=== PATIENT | male | born 1935 | race Caucasian/White ===

== ENCOUNTER 2018-03-08 19:47 | Emergency (ER) | payer MEDICARE, SELFPAY ==
[2018-03-08 19:58] VITALS: BP 173/92; PULSE 138; RESP 30; TEMP 38.2; O2SAT 92
--- NOTE | 2018-03-08 20:07 | DI.RAD_ITS ---
SYMPTOMS/DIAGNOSIS: FEVER AP AND LATERAL CHEST: Comparison is made with [id number]. The heart is enlarged. A coronary artery stent is seen. There is minimal blunting at the right costophrenic angle. There may be mildly increased interstitial markings which could indicate mild pulmonary edema. No focal infiltrate is seen. IMPRESSION: Cardiomegaly and question of mild CHF. No focal pneumonia is identified.
[2018-03-08] MEDS: Normal Saline 1,000 ML 1000 ML IV ×2 (20:14→20:59)
--- NOTE | 2018-03-08 20:16 | ED.GENADUL_ITS ---
Discharge Plan Disposition Patient Disposition: HOME Condition: Stable Discharge Details Chief Complaint: RespSymp Clinical Impression: Influenza, Dehydration Reason For Visit: ROSE Primary Care Provider: Aaliyah Ramirez ED Provider: Jama York Home Meds and New Rx's Prescriptions: New oseltamivir 30 mg capsule 30 mg PO BID 5 Days Qty: 10 RF: 0 No Action iron 325 MG capsule, extended release 325 mg PO PRN RF: 0 terazosin 5 MG capsule 5 mg PO DAILY Qty: 90 RF: 4 atorvastatin [Lipitor] 80 MG tablet 80 mg PO DAILY Qty: 90 RF: 4 methotrexate sodium 2.5 MG tablet 5 tab PO WEEKLY Qty: 60 RF: 3 levothyroxine 125 MCG tablet 125 mcg PO DAILY Qty: 90 RF: 4 nitroglycerin [Nitrostat] 0.4 MG tablet, sublingual 0.4 mg Sublingual PRN Qty: 25 RF: 4 aspirin [Aspir-Low] 81 MG tablet,delayed release (DR/EC) 81 mg PO DAILY RF: 0 Discharge Instructions Instructions: Influenza (ED) Additional Instructions: you tested positive for the flu make sure you drink fluids to stay hydrated if you have severe worsening symptoms or difficulty breathing return to the emergency department for reevaluation Medical Decision Making 82 yo male with hx of afib and eliquis but not on shaila blockers for a few months, hld, htn, who comes in with chief complaint of general weakness and cough for a few days. He is noted to have a fever here and he is not sure how long he has been febrile for. He denies chest pain, abd pain, rashes, recent t ravel, headache, neck stiffness. Has decreased breath sounds at the bases bilaterally on exam.. I suspect influenza vs pna given fever and the cough, will obtain lab work and chest xray to eval for pna. He is in afib with rates of 130's but appears volume depleted, will give IVF and reassess pt's labs show no acute abnormalities, is flu positive however. Xray negative. HR now in the 100's and o2 sat 95% on room air. Pt and are comfortable with d/c and will f/u with pcp and return precautions given. Per Pharmacy given his renal function they recommend 30mg BID tamiflu Differential Diagnosis influenza, pneumonia, uri Imaging Data Radiologic Study: Attestation: I personally reviewed and interpreted this imaging study as follows: Imaging: X-Ray Radiologist's impression: no acute findings Lab Data Lab results reviewed: Yes I reviewed the patient's lab results. ECG Data Attestation: I personally reviewed and interpreted this ECG (s) as follows: Prior ECG tracings: not available for review Interpretation: afib, rates in the 130's, qtc 412, artifact limiting interpretation HPI General Mode of arrival: EMS . Date/Time Provider Initiated Documentation: 03/08/18 19:55 . Limitations to Documentation: no limitations . Information obtained by: patient . History of Present Illness 82 year old M presents to the emergency department with the chief complaint of weakness, described as moderate, Patient started experiencing this day(s) (2) and it has been constant. No relieving factors improve symptom(s), Patient notes cough. Patient did receive the following treatments prior to arrival, none Related Data Home Medications Medication Instructions Recorded Confirmed ferrous sulfate [Iron] 325 mg PO PRN tab 08/01/12 03/08/18 atorvastatin [Lipitor] 80 mg PO DAILY #90 tab-cap 08/06/14 03/08/18 levothyroxine 125 mcg PO DAILY #90 tab-cap 08/06/14 03/08/18 methotrexate sodium 5 tab PO WEEKLY #60 tab 08/06/14 03/08/18 nitroglycerin [Nitrostat] 0.4 mg SUBLINGUAL PRN #25 tab 08/06/14 03/08/18 terazosin 5 mg PO DAILY #90 tab-cap 08/06/14 03/08/18 aspirin [Aspir-Low] 81 mg PO DAILY 02/19/15 03/08/18 oseltamivir 30 mg PO BID 5 Days #10 cap 03/08/18 Previous Rx's Medication Instructions Recorded oseltamivir 30 mg PO BID 5 Days #10 cap 03/08/18 Allergies Allergy/AdvReac Type Severity Reaction Status Date / Time No Known Allergies Allergy Unverified 03/08/18 20:01 General Stated Complaint: RespSymp TIGRE: 3 Review of Systems Review of Systems All systems reviewed & are unremarkable except as noted in HPI and below Constitutional Denies chills ENT Denies change in voice Cardiovascular Denies chest pain and Denies dyspnea Respiratory Denies dyspnea Gastrointestinal Denies abdominal pain, Denies nausea and Denies vomiting Genitourinary Denies dysuria Musculoskeletal Denies joint swelling Integumentary/Breasts Denies rash Psychiatric Denies depression Endocrine Denies cold intolerance and Denies heat intolerance PFSH Surgical History Extraction of cataract Stent placement Family History Mother Essential hypertension Personal history of malignant neoplasm Father No problems noted. Brother No problems noted. Social History Smoking/Tobacco Use Status: Former Tobacco Use Exam Const General: no acute distress Orientation: alert HENMT Head: normal to inspection Ears: external ears normal General nose exam: external nose normal Mouth: moist mucous membranes Eyes General: appearance normal, both eyes and all related structures Neck Neck: normal visual inspection Resp Effort & Inspection: normal respiratory effort and able to speak in complete sentences Cardio Rate: regular rate Skin General skin exam: no rashes or lesions noted Neuro General: alert and oriented x3 Extrem General: normal to inspection Psych Mental Status: mental status grossly normal Course Vital Signs Temperature 38.2 C H 03/08/18 19:58 Pulse 138 H 03/08/18 19:58 Respiratory Rate 30 H 03/08/18 19:58 Blood Pressure 173/92 H 03/08/18 19:58 Pulse Oximetry 92 L 03/08/18 19:58 Temperature 38.2 C H 03/08/18 19:58 Temperature Source Temporal Artery Scan 03/08/18 19:58 Pulse 138 H 03/08/18 19:58 Respiratory Rate 30 H 03/08/18 19:58 Respiratory Depth Normal 03/08/18 20:04 Blood Pressure 173/92 H 03/08/18 19:58 Blood Pressure Position Sitting 03/08/18 19:58 Pulse Oximetry 92 L 03/08/18 19:58 Oxygen Delivery Method Room Air 03/08/18 19:58 Oxygen Flow Rate 0 03/08/18 19:58 Pain Level 0 03/08/18 19:58 Lab/Test Results Lab/Test Results: 03/08/18 20:13 Nasopharynx Influenza Types A,B Antigen - Pending 03/08/18 20:07 Blood Blood Culture - Pending 03/08/18 20:07 Blood Blood Culture - Pending
[2018-03-08 20:18] LABS: Abs Immature Grans 0.01 k/cumm (0.0-0.09); Absolute Basophil Count 0.01 k/cumm (0.0-0.2); Absolute Eosinophil Count 0.01 k/cumm (0.0-0.7); Absolute Lymphocyte Count 0.29 k/cumm (1.2-3.4); Basophils % 0.2; Eosinophils % 0.2; HCT 38.4 % (40.0-50.0); HGB 13.3 g/dL (13.5-17.5); Immature Grans % 0.2; Lymphocytes % 6.9; Mean Corp. HGB Concentration 34.6 g/dL (32.0-36.0); Mean Corpuscular Hemoglobin 32.7 pg (27.0-33.0); Mean Corpuscular Volume 94.3 fL (80-95); Mean Platelet Volume 9.6 fL (8.0-11.0); Monocytes % 4.7; Neutrophils % 87.8; RBC 4.07 m/cumm (4.50-6.00); RBC Distribution Width 15.6 % (11.8-14.1); White Blood Cell Count 4.22 k/cumm (4.4-10.8)
[2018-03-08 20:20] LABS: Lactate-non-spesis 1.2 mmol/L (0.6-1.4)
[2018-03-08 20:32] LABS: Absolute Neutrophil Count 3.71 k/cumm (1.2-6.7)
[2018-03-08 20:36] LABS: ALT 30 U/L (12-78); AST 41 U/L (15-37); Albumin 3.3 g/dL (3.4-5.0); Alkaline Phosphatase 76 U/L (46-116); Anion Gap 9.6 mmol/L (3-11); BUN 20 mg/dL (7-18); CO2 25.4 mmol/L (21.0-32.0); CREATININE 1.53 mg/dL (0.70-1.30); Calcium 7.9 mg/dL (8.5-10.1); Chloride 102 mmol/L (98-107); Glucose 125 mg/dL (70-100); Potassium 4.2 mmol/L (3.5-5.1); Sodium 137 mmol/L (136-145); Total Protein 6.7 g/dL (6.4-8.2)
[2018-03-08 20:52] LABS: Platelet Count 94 x1000/uL (130-400)
[2018-03-08 20:55] VITALS: BP 126/76; PULSE 121; RESP 17; TEMP 38.5; O2SAT 91
[2018-03-08 20:56] LABS: INR 1.3 (0.9-1.1); PTT Activated 27.6 sec (21.0-31.4); Prothrombin Time 12.6 sec (9.3-11.0)
[2018-03-08] MEDS: Acetaminophen 500 MG TAB 1000 MG PO (20:56)
--- NOTE | 2018-03-08 20:56 | NUR.NOTE ---
patient returned from DI, medicated per MD order Nursing Note:
--- NOTE | 2018-03-08 21:14 | DI.VRAD_ITS ---
EXAM: XR Chest, 2 Views EXAM DATE/TIME: 03/08/2018 8:09 PM CLINICAL HISTORY: 82 years old, male; Signs and symptoms; Fever TECHNIQUE: XR of the chest, 2 views. COMPARISON: CR PORTABLE CHEST ONE VIEW 12/05/2014 8:35 AM FINDINGS: No airspace consolidation, pleural effusion or pneumothorax. The cardiomediastinal silhouette is unremarkable. IMPRESSION: No acute findings. Dictated and Authenticated by: Anton Marsh MD. Ordering:TED Yun MD
[2018-03-08] MEDS: Oseltamivir 75 MG CAP PO (21:15)
[2018-03-08 21:52] VITALS: BP 135/95; PULSE 111; RESP 31; TEMP 37.9; O2SAT 90
== END 2018-03-08 21:45 | disposition home or self-care (01) ==
LOC: ER 21:45
PROVIDERS: Emergency Provider Emergency Medicine; PCP Nurse Practitioner
DX: J11.1 Influenza due to unidentified influenza virus with other respiratory manifestations (principal); R05 Cough; E86.0 Dehydration; I48.91 Unspecified atrial fibrillation; Z79.01 Long term (current) use of anticoagulants; J44.9 Chronic obstructive pulmonary disease, unspecified; Z87.891 Personal history of nicotine dependence; I10 Essential (primary) hypertension
CPT/HCPCS: 36415; 80053; 87040; 87449; 93005; 96360; 99285; 71046; 83605; 85025; 85610; 85730; 93010

== ENCOUNTER 2018-08-07 15:56 | Outpatient (REF) | payer MEDICARE, SELFPAY ==
[2018-08-07 19:43] LABS: HCT 40.2 % (40.0-50.0); HGB 13.5 g/dL (13.5-17.5); Mean Corp. HGB Concentration 33.6 g/dL (32.0-36.0); Mean Corpuscular Hemoglobin 30.8 pg (27.0-33.0); Mean Corpuscular Volume 91.6 fL (80-95); Mean Platelet Volume 10.6 fL (8.0-11.0); Platelet Count 113 x1000/uL (130-400); RBC 4.39 m/cumm (4.50-6.00); RBC Distribution Width 15.2 % (11.8-14.1); White Blood Cell Count 3.46 k/cumm (4.4-10.8)
[2018-08-07 20:05] LABS: ALT 31 U/L (12-78); AST 28 U/L (15-37); Albumin 3.3 g/dL (3.4-5.0); Alkaline Phosphatase 93 U/L (46-116); Anion Gap 8.2 mmol/L (3-11); BUN 24 mg/dL (7-18); Bilirubin, Total 0.5 mg/dL (0.2-1.0); CO2 27.8 mmol/L (21.0-32.0); Calculated LDL 99; Chloride 108 mmol/L (98-107); Cholesterol 159 mg/dL (50-200); Estimated GFR 52.85 (mL/min/1.73m2); Glucose 131 mg/dL (70-100); HDL Cholesterol 52 mg/dL (40-60); Sodium 144 mmol/L (136-145); TSH (W/Ref FT4) 0.29 uIU/mL (0.358-3.74); Total Protein 6.5 g/dL (6.4-8.2); Triglyceride 43 mg/dL (30-150)
[2018-08-07 20:25] LABS: Calcium 8.4 mg/dL (8.5-10.1)
[2018-08-07 20:47] LABS: FREE T4 1.61 ng/dL (0.76-1.46)
== END 2018-08-07 16:16 ==
LOC: NCHCN 15:56
PROVIDERS: PCP Nurse Practitioner; Visit Provider Nurse Practitioner
DX: E78.5 Hyperlipidemia, unspecified (principal); R73.01 Impaired fasting glucose; E03.9 Hypothyroidism, unspecified; D64.9 Anemia, unspecified
CPT/HCPCS: 80053; 80061; 83721; 85027; 84439; 84443

== ENCOUNTER 2018-12-16 06:53 | Emergency (ER) | payer MEDICARE, SELFPAY ==
[2018-12-16] VITALS (19 sets, daily range): BP systolic 124–173; BP diastolic 79–128; PULSE 60–91; RESP 15–27; TEMP 36.4; O2SAT 95–99
--- NOTE | 2018-12-16 06:54 | ED.GENADUL_ITS ---
Discharge Plan Disposition Patient Disposition: [facility] Condition: Stable Discharge Details Chief Complaint: CVA/TIA Clinical Impression: CVA (cerebral vascular accident) Primary Care Provider: Aaliyah Ramirez ED Provider: Eduard Reyes Home Meds and New Rx's Prescriptions: No Action terazosin 5 MG capsule 5 mg PO DAILY Qty: 90 RF: 4 methotrexate sodium 2.5 MG tablet 4 tab PO WEEKLY Qty: 60 RF: 3 levothyroxine 125 MCG tablet 125 mcg PO DAILY Qty: 90 RF: 4 nitroglycerin [Nitrostat] 0.4 MG tablet, sublingual 0.4 mg Sublingual PRN Qty: 25 RF: 4 aspirin [Aspir-Low] 81 MG tablet,delayed release (DR/EC) 81 mg PO DAILY RF: 0 atorvastatin 20 mg Tablet 20 mg PO QPM RF: 0 folic acid 1 mg Tablet 1 mg PO DAILY RF: 0 Medical Decision Making Upon my evaluation, this patient had a high probability of imminent or life- threatening deterioration, which required my direct attention, intervention, and personal management. I have personally provided 45 minutes of critical care time exclusive of time spent on separately billable procedures. Time includes review of laboratory data, radiology results, discussion with consultants, and monitoring for potential decompensation. Interventions were performed as documented above. 7 AM This is an 83-year-old male with a past medical history of previous stroke in 2015 who did receive TPA at that time, A. fib, he was previously on Eliquis but is now on just aspirin. Presents today for evaluation of strokelike symptoms. 45 minutes prior to arrival patient developed left sided weakness for his upper and lower extremity. He does have chronic slurred speech from his previous stroke, however this weakness is new. He denies any significant trauma. EMS brought the patient to the ER for further assessment. Vital signs stable, Accu-Chek normal. The patient's is currently at bedside now. On arrival patient was immediately assessed in the flores, notable strokelike symptoms with an NIH stroke score of at least 14. Patient was sent immediately to CT for further assessment. We will reassess when the patient returns. 7:22 AM Personal review of CT scan shows no evidence of acute bleed, we are awaiting for virtual radiology read. Upon patient's return his NIH stroke scale appears to actually be around 15, he does have some chronic dysarthria, however his weakness, facial droop, decreased sensation is new. No clinical evidence of trauma. We are awaiting portable chest x-ray. I had a long discussion with the patient and his was at bedside, we discussed risks and benefits of TPA,. At this time understanding the risks and benefits the patient states that he would like the medication. Was very clear that due to the patient's age there is a significant increase chance of life-threatening bleeding, the patient and family understand. Pending formal read from radiology. We have paged [facility] neurology for stat consult, as well as potential transfer. 7:45 AM The case was discussed with Dr. Gil of neurology, all labs were reviewed, she personally reviewed the CT scan, including CT angios and sees no evidence of acute bleed, additionally V rad read shows no evidence of acute bleed. She does recommend TPA administration. TPA will be given here per protocol. we will administer TPA. Patient does demonstrate an equivocal troponin of 0.08, calcium is low at 7.8 which I feel is likely secondary to his hypoalbuminemia. [facility] has agreed to transfer the patient by air. I have extensively reviewed the treatment plan with the patient. I have addressed all patient concerns at this time. I have also discussed the plan with the admitting physician and they agree with the current assessment and plan and have agreed to assume responsibility for the patient. All parties demonstrate verbal understanding and agreement with our assessment and plan at this time. Case will be signed out to my colleague Dr. York for final disposition with [facility]. EKG 7: 19 Rate 78, TC 458, QRS 90, atrial fibrillation, no significant ST elevations or depression, no evidence of STEMI. Relatively unchanged from prior EKG on 03/08/2018 FINDINGS: Study is limited by degree vascular opacification, some motion as well as vascular calcification. Intracranial vascular structures are patent without major branch vessel occlusion. No evidence of definite high-grade stenosis. 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 There is a left frontal lobe infarct. Cerebral venous structures appear patent. IMPRESSION: Limited examination. No evidence of major vascular intracranial occlusion or high-grade stenosis. FINDINGS: Aortic arch and cervical vessels shows calcification and atherosclerotic change. No visible aortic aneurysm. Study is limited by degree of vascular calcification. Common, internal, external carotid arteries are patent bilaterally. There is calcification at carotid bifurcations. There is is no evidence of significant degree of stenosis of left internal carotid artery. Calcification limits evaluation of proximal right internal carotid artery but there may be a proximal moderate proximal narrowing. No occlusion. Bilateral vertebral arteries are patent the visualized without high-grade stenosis and no evidence of occlusion. Degenerative changes are noted in the spine. IMPRESSION: Limited examination. Atherosclerotic change. No vascular lesion or high-grade cervical vascular stenosis. COMMENT: Reference per NASCET criteria for degree of stenosis: Mild: less than 50% stenosis. Moderate: 50- 69% stenosis. Severe: 70-94% stenosis. Near occlusion: 95-99% stenosis. Thank you for allowing us to participate in the care of your patient. Dictated and Authenticated by: Maribel Lucia MD [facility] General Date/Time Provider Initiated Documentation: 12/16/18 07:17 . HPI Narrative: This is an 83-year-old male with a past medical history of A. fib, thyroid disorder, previous stroke in 2015 who received TPA at that time, who presents today for evaluation of stroke. 45 minutes prior to arrival the patient was walking down the stairs, at that time he had no significant complaints or abnormalities however once he got to the bottom he became notably weak on the left hand side, and developed slurred speech, left arm and leg weakness, called for his immediately. EMS arrived and sugar levels are normal, vital signs are stable, concern for significant strokelike symptoms. Patient was transported to the ED for further assessment. Currently the patient is alone without family. No medication list has been brought by EMS. We are waiting for family to arrive. The patient has no complaints of chest pain or shortness of breath. He does admit to left-sided weakness, difficulty speaking, and facial droop. No other modifying factors. Review of patient's records from his PCPs office demonstrate that he does take aspirin but no Eliquis. Review of prior records in our ED seem to indicate that he was previously on Eliquis. Related Data Home Medications Medication Instructions Recorded Confirmed levothyroxine 125 mcg PO DAILY #90 tab-cap 08/06/14 12/16/18 methotrexate sodium 4 tab PO WEEKLY #60 tab 08/06/14 12/16/18 nitroglycerin [Nitrostat] 0.4 mg SUBLINGUAL PRN #25 tab 08/06/14 12/16/18 terazosin 5 mg PO DAILY #90 tab-cap 08/06/14 12/16/18 aspirin [Aspir-Low] 81 mg PO DAILY 02/19/15 12/16/18 atorvastatin 20 mg PO QPM 12/16/18 12/16/18 folic acid 1 mg PO DAILY 12/16/18 12/16/18 Allergies Allergy/AdvReac Type Severity Reaction Status Date / Time rivaroxaban [From Xarelto] Allergy Unverified 12/16/18 07:05 General TIGRE: 3 Review of Systems Review of Systems ROS Unobtainable: All systems reviewed & are unremarkable except as noted in HPI and below PFSH Surgical History (Updated 12/14/17 @ 14:34 by [employer]) Extraction of cataract 02/25/15 DR. JOHN-RIGHT; 03/11/15 DR. JOHN-LEFT Stent placement Family History Mother Essential hypertension Personal history of malignant neoplasm STOMACH Father No problems noted. Brother No problems noted. Social History Smoking/Tobacco Use Status: Former Tobacco Use Drug use: Never Do you feel safe in your relationship?: Yes Exam Narrative Exam Narrative: 1.Const: Elderly appearing 2.Eyes: PERRL, 3 mm bilaterally. No conjunctival injection, and symmetrical lids. No forced gaze. 3.ENT: Atraumatic external nose and ears. Moist MM. Neck: Symmetric, trachea midline, No thyromegaly. Notable left-sided facial droop 4.CVS: +S1/S2, No murmurs or gallops. Peripheral pulses 2+ and equal in all extremities. Brisk capillary refill in all extremities. 5.RESP: Unlabored respiratory effort. Clear to auscultation bilaterally. No wheezes rales or rhonchi 6.GI: Soft, Nontender/Nondistended, No hepatosplenomegaly. No guarding or rebound. 7.MSK: Normocephalic/Atraumatic, Extremities w/o deformity or ttp No cyanosis or clubbing, notable weakness for the left upper and lower extremities. No evidence of midline cervical thoracic or lumbar spine tenderness. No evidence of significant cranial trauma. 8.Skin: Warm, Dry. Mild evidence of bruise of the left lateral ribs between ribs 6,7,8,9 9.Neuro: Notable left-sided facial droop with forehead sparing. Significantly slurred speech, inability to perform handgrip or movement of the left upper extremity. He cannot which is slightly. Left lower extremity demonstrates notable decrease in strength, strength is roughly 2 out of 5. Right lower and upper extremity demonstrate normal movement, functionality, and strength. Decreased sensation on the left upper extremity over the forearm and hand, intact sensation over the proximal arm on the left, in the left lower extremity. Decreased sensation on the left face. Notable difficulty eliciting evaluation of the patient's vision, patient appears to be intact, however focal jung of vision appears to be reduced, versus notably difficult to evaluate with the patient's current stroke status. 10.Psych: Appropriate mood and affect Sign Out Sign Out Data: Sign Out Comment: Strokelike symptoms, NIH score 15, pending CT result for administration of TPA. Last updated by Eduard Reyes DO at 12/16/18 07:29
[2018-12-16] MEDS: Omnipaque 350 MG/ML 100 ML BTL IJ (07:03)
--- NOTE | 2018-12-16 07:14 | DI.CT_ITS ---
EXAM: CT BRAIN NECK CTA CLINICAL HISTORY: stroke protocol TECHNIQUE: Noncontrast cranial CT was performed followed by contrast enhanced CT angiogram, neck and head. 85 cc of Omnipaque [address] angiography was performed with multi slice a cquisition and multi planar and 3D reconstruction. COMPARISON: HEAD WITHOUT STROKE PROTOCOL from 12/05/2014 FINDINGS: The noncontrast study shows moderate generalized cerebral atrophy and patchy areas of decreased atten uation in the periventricular white matter bilaterally consistent with microvascular ischemic changes . Increased prominence of old left frontal infarct noted suggesting progressive infarction in this a mimilizzie. Increased prominence of areas of decreased attenuation and right occipital lobe also noted which may represent small interval infarctions. No evidence of acute intracranial hemorrhage. No mass effect or midline shift. No acute calvarial fr acture. Orbital and temporal bone structures appear intact as visualized. CT angiography evaluation was severely limited by motion artifact and suboptimal opacification of vas cular structures associated with catheter leakage. Lung apices grossly clear. Tracheolaryngeal stru ctures grossly intact. No cervical mass or adenopathy. Contrast is visible in the aortic arch, comm on and internal carotid arteries bilaterally, and middle anterior and posterior cerebral arteries as well as the vertebral and basilar arteries. However stenosis cannot be excluded due to the very poor contrast opacification. IMPRESSION: Very limited study. If there is a high clinical suspicion of vascular stenosis, dissection or aneurys m,,repeat CTA would be recommended.
--- NOTE | 2018-12-16 07:18 | DI.RAD_ITS ---
EXAM: XR PORTABLE CHEST AP CLINICAL HISTORY: stroke TECHNIQUE: COMPARISON: XR CHEST 2V PA LATERAL from 03/08/2018 FINDINGS: Two views were obtained, labeled 0725 and 0730 hours. Heart is enlarged. Lungs are clear. No gross pleural effusion identified on these frontal films. IMPRESSION: No evidence of acute process.
[2018-12-16 07:24] LABS: BE (Venous) -0.2 mmol/L (-3-3); HCO3 (Venous) 25 mmol/L (22-28); O2 Sat (Venous) 82 % (70-80); TCO2 (Venous) 23 mmol/L (22-29); pCO2 (Venous) 46 mm/Hg (34-47); pH (Venous) 7.35 (7.32-7.43); pO2 (Venous) 47 mm/Hg (28-44)
[2018-12-16 07:29] LABS: Abs Immature Grans 0.01 k/cumm (0.0-0.09); Absolute Basophil Count 0.02 k/cumm (0.0-0.2); Absolute Eosinophil Count 0.16 k/cumm (0.0-0.7); Absolute Lymphocyte Count 1.07 k/cumm (1.2-3.4); Absolute Monocyte Count 0.19 k/cumm (0.11-0.7); Absolute Neutrophil Count 2.57 k/cumm (1.2-6.7); Basophils % 0.5; HCT 38.4 % (40.0-50.0); HGB 13.2 g/dL (13.5-17.5); Immature Grans % 0.2; Lymphocytes % 26.6; Mean Corp. HGB Concentration 34.4 g/dL (32.0-36.0); Mean Corpuscular Hemoglobin 31.4 pg (27.0-33.0); Mean Corpuscular Volume 91.2 fL (80-95); Mean Platelet Volume 9.4 fL (8.0-11.0); Monocytes % 4.7; Platelet Count 145 x1000/uL (130-400); RBC 4.21 m/cumm (4.50-6.00); RBC Distribution Width 14.1 % (11.8-14.1); White Blood Cell Count 4.02 k/cumm (4.4-10.8)
[2018-12-16 07:37] LABS: INR 1.2 (0.9-1.1); PTT Activated 22.3 sec (21.0-31.4); Prothrombin Time 12.1 sec (9.3-11.0)
--- NOTE | 2018-12-16 07:47 | DI.VRAD_ITS ---
PROCEDURE INFORMATION: Exam: CT Angiography Head Without And With Contrast Exam date and time: 12/16/2018 7:00 AM Clinical history: 83 years old, male; Fell in home TECHNIQUE: Imaging protocol: Computed tomographic angiography of the head without and with intravenous contrast. 3D rendering: MIP reconstructed images were created and reviewed. Radiation optimization: All CT scans at this facility use at least one of these dose optimization techniques: automated exposure control; mA and/or kV adjustment per patient size (includes targeted exams where dose is matched to clinical indication); or iterative reconstruction. Contrast material: [id number]; Contrast volume: 85 ml; Contrast route: IV LAC 18G; COMPARISON: CT HEAD WITHOUT STROKE PROTOCOL 12/05/2014 7:55 AM FINDINGS: Study is limited by degree vascular opacification, some motion as well as vascular calcification. Intracranial vascular structures are patent without major branch vessel occlusion. No evidence of definite high-grade stenosis. 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 There is a left frontal lobe infarct. Cerebral venous structures appear patent. IMPRESSION: Limited examination. No evidence of major vascular intracranial occlusion or high-grade stenosis. PROCEDURE INFORMATION: Exam: CT Angiography Neck Without And With Contrast Exam date and time: 12/16/2018 7:00 AM Clinical history: 83 years old, male; Fell in home TECHNIQUE: Imaging protocol: Computed tomographic angiography of the neck without and with intravenous contrast. 3D rendering: MIP reconstructed images were created and reviewed. Radiation optimization: All CT scans at this facility use at least one of these dose optimization techniques: automated exposure control; mA and/or kV adjustment per patient size (includes targeted exams where dose is matched to clinical indication); or iterative reconstruction. COMPARISON: CT HEAD WITHOUT STROKE PROTOCOL 12/05/2014 7:55 AM FINDINGS: Aortic arch and cervical vessels shows calcification and atherosclerotic change. No visible aortic aneurysm. Study is limited by degree of vascular calcification. Common, internal, external carotid arteries are patent bilaterally. There is calcification at carotid bifurcations. There is is no evidence of significant degree of stenosis of left internal carotid artery. Calcification limits evaluation of proximal right internal carotid artery but there may be a proximal moderate proximal narrowing. No occlusion. Bilateral vertebral arteries are patent the visualized without high-grade stenosis and no evidence of occlusion. Degenerative changes are noted in the spine. IMPRESSION: Limited examination. Atherosclerotic change. No vascular lesion or high-grade cervical vascular stenosis. COMMENT: Reference per NASCET criteria for degree of stenosis: Mild: less than 50% stenosis. Moderate: 50-69% stenosis. Severe: 70-94% stenosis. Near occlusion: 95-99% stenosis. Dictated and Authenticated by: Maribel Lucia MD. Ordering:MARTA Chapa MD
[2018-12-16 07:48] LABS: Ammonia < 10 umol/L (11-32)
--- NOTE | 2018-12-16 07:48 | DI.VRAD_ITS ---
PROCEDURE INFORMATION: Exam: XR Chest, 1 View Exam date and time: 12/16/2018 7:38 AM Clinical history: 83 years old, male; Other: Stroke; Additional info: Fell in home TECHNIQUE: Imaging protocol: XR of the chest Views: 1 view. COMPARISON: CR XR CHEST 2V PA LATERAL 03/08/2018 8:44 PM FINDINGS: Lungs: No acute cardiopulmonary finding. Pleural space: No significant visible pleural effusion. No pneumothorax. Heart/Mediastinum: Stable cardiac silhouette. Bones/joints: No acute finding. IMPRESSION: Dictated and Authenticated by: Maribel Lucia MD. Ordering:MARTA Chapa MD
[2018-12-16 07:55] LABS: ALT 14 U/L (16-63); AST 21 U/L (15-37); Albumin 2.8 g/dL (3.4-5.0); Alkaline Phosphatase 80 U/L (46-116); Anion Gap 7.5 mmol/L (3-11); BUN 19 mg/dL (7-18); Bilirubin, Total 0.8 mg/dL (0.2-1.0); CO2 25.5 mmol/L (21.0-32.0); CREATININE 1.27 mg/dL (0.70-1.30); Calcium 7.8 mg/dL (8.5-10.1); Chloride 110 mmol/L (98-107); Estimated GFR 54.29 (mL/min/1.73m2); Glucose 111 mg/dL (70-100); Potassium 4.6 mmol/L (3.5-5.1); Sodium 143 mmol/L (136-145); TSH (W/Ref FT4) 0.06 uIU/mL (0.36-3.74); Total Protein 5.9 g/dL (6.4-8.2)
[2018-12-16 08:00] LABS: Troponin I 0.08 ng/mL (0.00-0.06)
[2018-12-16 08:41] LABS: FREE T4 1.68 ng/dL (0.76-1.46)
== END 2018-12-16 08:47 | disposition short-term general hospital (02) ==
PROVIDERS: Student in an Organized Health Care Education/Training Program; Emergency Provider Emergency Medicine; PCP Nurse Practitioner
DX: I63.9 Cerebral infarction, unspecified (principal); I48.91 Unspecified atrial fibrillation; Z79.82 Long term (current) use of aspirin; Z86.73 Personal history of transient ischemic attack (TIA), and cerebral infarction without residual deficits
CPT/HCPCS: 36415; 70496; 70498; 80053; 82805; 93005; 96365; 99291; 71045; 82140; 84439; 84443; 84484; 85025; 85610; 85730; 93010; J2997; J3490

== ENCOUNTER 2019-02-12 09:13 | Emergency (ER) | payer MEDICARE, SELFPAY ==
[2019-02-12 09:17] VITALS: PULSE 79; RESP 16; TEMP 36.6
--- NOTE | 2019-02-12 09:28 | ED.GENADUL_ITS ---
Discharge Plan Disposition Patient Disposition: HOME Condition: Good Discharge Details Chief Complaint: Orthopedic Clinical Impression: Left shoulder pain Primary Care Provider: Aaliyah Ramirez ED Provider: Ginette Nicholas Home Meds and New Rx's Prescriptions: No Action terazosin 5 MG capsule 5 mg PO DAILY Qty: 90 RF: 4 methotrexate sodium 2.5 MG tablet 4 tab PO WEEKLY Qty: 60 RF: 3 levothyroxine 125 MCG tablet 125 mcg PO DAILY Qty: 90 RF: 4 nitroglycerin [Nitrostat] 0.4 MG tablet, sublingual 0.4 mg Sublingual PRN Qty: 25 RF: 4 aspirin [Aspir-Low] 81 MG tablet,delayed release (DR/EC) 81 mg PO DAILY RF: 0 atorvastatin 20 mg Tablet 20 mg PO QPM RF: 0 folic acid 1 mg Tablet 1 mg PO DAILY RF: 0 Discharge Instructions Instructions: Shoulder Pain (ED) Additional Instructions: Have a reevaluation with your primary care doctor in the next 2 to 3 days. Rest activities as tolerated. Ice to the shoulder for discomfort. Consider Tylenol or acetaminophen for discomfort. Follow-up with orthopedic doctor for reevaluation of your left shoulder. Referral was provided. You declined labs for cardiac evaluation today however if you have any chest pain, difficulty breathing, shortness of breath, dizziness, ill feeling or return of shoulder pain associated with any of the previously mentioned symptoms please have immediate reevaluation in the emergency room as discussed. Return sooner if needed for worsening or concerns Referrals: Moise Dasilva MD [ [facility] STAFF PHYSICIAN] - Medical Decision Making Is an 83-year-old patient who presents for complaints of left shoulder pain. Patient reports 3 days of left shoulder pain worse with range of motion. Patie nt reports no specific injury or trauma however he did sustain a fall after a stroke in November was bruised through his left side and concerned that he may have injured his shoulder during that fall. Patient did not report shoulder pain until 3 days ago. Patient does report the shoulder pain is worse with range of motion specifically in the morning and occasional movements throughout the day. Patient denies associated chest pain, difficulty breathing shortness of breath or wheezing. Patient denies headache or dizziness. Denies diaphoresis or fatigue. Patient denies numbness, tingling or weakness of the affected arm. Patient reports he has had a significant history of arthritis but no specific left shoulder pain. Patient does have a cardiac history for which she does have nitroglycerin at home. Patient reports the shoulder pain is very different than the chest pain he is experienced in the past. Patient points to the left shoulder as site of maximum pain but does indicate that the pain extends toward his neck and down into his arm. On exam patient does have notable left shoulder pain against resistance abduction and adduction. No palpable tenderness at the joint. No obvious deformities. Patient has no neck midline tenderness. He does have mild rotational pain with range of motion and lateral neck discomfort with range of motion. Patient has no focal tenderness at the GH joint, humerus, elbow, forearm or hand. Sensation intact distally. Postie strength 5 out of 5 on the left. Breath sounds are clear. Patient offered x-ray of his shoulder which is his desire at this time. Discussed cardiac evaluation. He consents to EKG. Chest x-ray of the left shoulder reveals degenerative changes but no associated acute fracture. EKG reviewed with Ayanna Murrayton reveals a heart rate of 53, atrial fibrillation. When compared to previous EKG in November this is unchanged. Discussed EKG as well as chest x-ray findings with the patient. Discussed the potential for cardiac abnormalities given patient's risk factors specifically A. fib, atherosclerosis, hyperlipidemia, and recent CVA. 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 He does not feel he has cardiac symptoms at this time. I did discuss the potential for atypical presentations of heart disease. He is aware of my concerns and continues to decline lab evaluation. I encouraged the patient to return for any worsening. I did discuss use of nitroglycerin which he is aware of proper use of nitroglycerin and indications to use. Patient encouraged follow-up with PCP promptly as well as orthopedic referral, kelvin encouraged. The patient was stable and requested discharge. Prior to discharge, my usual and customary return precautions were reviewed with the patient - this included follow-up instructions and reasons to return to the Emergency Department if conditions worsens, does not improve as expected, or other new concerns arise. HPI General Date/Time Provider Initiated Documentation: 02/12/19 09:16 . HPI Narrative: This is an 83-year-old patient who presents for complaints of shoulder pain worse for the last 3 days. Patient reports significant pain when waking in the morning specifically pulling himself up to get out of bed. Patient also notes pain throughout the day with specific range of motion's. Patient denies associated chest pain, difficulty breathing or shortness of breath or wheezing. Denies any back pain. Patient reports energy is normal. 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 Patient and concerned that he fell in the bathroom at the time of his stroke ultimately sustained left-sided paralysis and is concerned he may have injured his shoulder during the fall. Patient denies headache or dizziness. Denies fevers or chills. Patient does report pain primarily at the left shoulder occasionally radiating toward his neck and into his arm. Patient denies associated numbness, tingling or weakness. Denies diaphoresis, sweating or clamminess. Patient does have a history of chest pain in the past but denies any active chest pain. No ill feeling. Related Data Home Medications Medication Instructions Recorded Confirmed levothyroxine 125 mcg PO DAILY #90 tab-cap 08/06/14 12/16/18 methotrexate sodium 4 tab PO WEEKLY #60 tab 08/06/14 12/16/18 nitroglycerin [Nitrostat] 0.4 mg SUBLINGUAL PRN #25 tab 08/06/14 12/16/18 terazosin 5 mg PO DAILY #90 tab-cap 08/06/14 12/16/18 aspirin [Aspir-Low] 81 mg PO DAILY 02/19/15 12/16/18 atorvastatin 20 mg PO QPM 12/16/18 12/16/18 folic acid 1 mg PO DAILY 12/16/18 12/16/18 Allergies Allergy/AdvReac Type Severity Reaction Status Date / Time rivaroxaban [From Xarelto] Allergy Unverified 02/12/19 09:25 General Stated Complaint: Orthopedic TIGRE: 3 Review of Systems All systems reviewed & are unremarkable except as noted in HPI and below Constitutional Constitutional: Denies fatigue, Denies fever(s), Denies headache(s) and Denies malaise ENT Ears, Nose, Mouth, and Throat: Denies headache(s) and Denies neck pain Cardiovascular Cardiovascular: Denies chest pain, Denies diaphoresis, Denies syncope, Denies lightheadedness, Denies palpitations and Denies dyspnea on exertion Respiratory Respiratory: Denies cough and Denies dyspnea on exertion Gastrointestinal Gastrointestinal: Denies abdominal pain, Denies nausea and Denies vomiting Musculoskeletal Musculoskeletal: Denies back pain, Denies deformity, Denies limited range of motion, Denies neck pain, Denies numbness and Denies tingling Integumentary/Breasts Skin/Breast: Denies rash and Denies wounds Neurologic Neurologic: Denies syncope, Denies headache(s), Denies numbness and Denies tingling Endocrine Endocrine: Denies fatigue and Denies palpitations [facility] Medical History Anemia (Chronic) Atherosclerosis (Acute) Bilateral impacted cerumen (Acute) BPH (benign prostatic hyperplasia) (Chronic) COPD (chronic obstructive pulmonary disease) (Chronic) Dental caries (Acute) Fatigue (Acute) GERD (gastroesophageal reflux disease) (Chronic) HLD (hyperlipidemia) (Acute) Hypothyroidism (Chronic) Impaired fasting glucose (Acute) Memory deficit (Acute) Myocardial infarction (Chronic) PAF (paroxysmal atrial fibrillation) (Acute) Rheumatoid arthritis (Chronic) Thrombocytopenia (Chronic) Urinary frequency (Acute) Surgical History (Updated 12/14/17 @ 14:34 by Tiberium DC) Extraction of cataract 02/25/15 DR. JOHN-RIGHT; 03/11/15 DR. JOHN-LEFT Stent placement Family History Mother Essential hypertension Personal history of malignant neoplasm STOMACH Father No problems noted. Brother No problems noted. Social History Smoking/Tobacco Use Status: Former Tobacco Use Alcohol Intake: never Drug use: Never Substance use type: does not use Do you feel safe at home: Yes Do you feel safe in your relationship?: Yes Exam Narrative Exam Narrative: CONST: Healthy appearing patient, in no acute distress. Well hydrated. Alert and alert. NECK: Normal visual inspection. FROM. Trachea midline. No Midline tenderness. Mild pain reported with rotation bilaterally. CHEST: Normal insepection of the chest. RESP: Normal respiratory effort. Speaking full sentences. No cough. No audible wheezing. No retractions. Breath sounds clear and equal bilaterally CARDIO: No JVD. No murmurs rubs or gallops, regular rate and rhythm MUSCULOSKELETAL: Normal Gait. FROM of all extremities. Full range of motion of the left shoulder. Patient points to the left shoulder as site of pain. Deborah ent has no clavicle tenderness. Patient does have shoulder pain with abduction against resistance as well as abduction against resistance. No obvious humeral tenderness. No elbow pain with palpation. Supination pronation without difficulty. No wrist pain with palpation. Postie strength 5 out of 5 in the left arm. Sensation intact distally. Pulses intact distally SKIN: Normal. Dry. No rashes. NEURO: Alert and awake. Speech clear. PSYCH: Normal affect. Cooperative. Course Vital Signs Vital signs: Vital Signs Temperature 36.6 C 02/12/19 09:17 Pulse 79 02/12/19 09:17 Respiratory Rate 16 02/12/19 09:17 Temperature 36.6 C 02/12/19 09:17 Temperature Source Temporal Artery Scan 02/12/19 09:17 Pulse 79 02/12/19 09:17 Respiratory Rate 16 02/12/19 09:17 Respiratory Effort Non-Labored 02/12/19 09:17 Blood Pressure Position Sitting 02/12/19 09:17 Oxygen Delivery Method Room Air 02/12/19 09:17 Oxygen Flow Rate 0 02/12/19 09:17 Pain Level 4 02/12/19 09:17
--- NOTE | 2019-02-12 09:36 | DI.RAD_ITS ---
EXAM: XR SHOULDER LT COMPLETE 2+V INDICATION: pain. COMPARISON: No exams were available for comparison TECHNIQUE: 2D digital imaging was performed. FINDINGS: There are mild degenerative changes of the AC joint. There is mild narrowing of the glenohumeral gilda nt and mild periarticular spurring. The humeral head is normally positioned. No tendon or joint spa ce calcifications are seen. IMPRESSION: [id number] degenerative changes.
[2019-02-12 11:45] VITALS: BP 166/77; PULSE 57; RESP 18; O2SAT 99
== END 2019-02-12 11:45 | disposition home or self-care (01) ==
PROVIDERS: Emergency Provider Physician Assistant; PCP Nurse Practitioner
DX: M25.512 Pain in left shoulder (principal); I63.9 Cerebral infarction, unspecified; I69.359 Hemiplegia and hemiparesis following cerebral infarction affecting unspecified side; J44.9 Chronic obstructive pulmonary disease, unspecified; Z87.891 Personal history of nicotine dependence
CPT/HCPCS: 93005; 99284; 73030; 93010

== ENCOUNTER 2019-04-15 08:07 | Emergency (ER) | payer MEDICARE, SELFPAY ==
[2019-04-15] VITALS (33 sets, daily range): BP systolic 129–239; BP diastolic 70–201; PULSE 48–180; RESP 10–26; TEMP 36.4; O2SAT 96–100
--- NOTE | 2019-04-15 08:12 | DI.CT_ITS ---
EXAM: CT HEAD CERVICAL SPINE WO CLINICAL HISTORY: altered, fall TECHNIQUE: The exam was performed without contrast. COMPARISON: CT BRAIN NECK CTA from 12/16/2018 FINDINGS: CT head: There is cerebral atrophy and small vessel ischemic disease consistent with the patient's age. There is encephalomalacia again seen in the left parietal lobe. There does appear to be a hyper dense dis harsha left MCA. No acute intracranial hemorrhage, midline shift or mass effect is identified. The noel tricles are intact. The basilar cisterns are patent. No fluid levels are seen in the visualized par anasal sinuses. Mastoid air cells are well pneumatized. No skull fracture. CT cervical spine: No acute fractures or subluxations are present. There are degenerative changes throughout the cervic al spine. 1-2 mm retrolisthesis of C3 on C4 is identified. The prevertebral soft tissues are unrema rkable. The lung apices are clear. IMPRESSION: 1. Hyperdense left MCA consistent with thrombosis. 2. No acute intracranial hemorrhage or calvarial fracture. 3. No acute fracture or subluxation in the cervical spine.
[2019-04-15] MEDS: Etomidate 20 MG/10 ML VIAL IVP (08:28)
[2019-04-15 08:30] LABS: Abs Immature Grans 0.02 k/cumm (0.0-0.09); Absolute Basophil Count 0.03 k/cumm (0.0-0.2); Absolute Eosinophil Count 0.13 k/cumm (0.0-0.7); Absolute Lymphocyte Count 1.64 k/cumm (1.2-3.4); Absolute Monocyte Count 0.38 k/cumm (0.11-0.7); Absolute Neutrophil Count 3.79 k/cumm (1.2-6.7); Basophils % 0.5; Eosinophils % 2.2; HCT 43.3 % (40.0-50.0); HGB 15.3 g/dL (13.5-17.5); Immature Grans % 0.3 %; Lymphocytes % 27.4; Mean Corp. HGB Concentration 35.3 g/dL (32.0-36.0); Mean Corpuscular Hemoglobin 32.1 pg (27.0-33.0); Mean Platelet Volume 9.9 fL (8.0-11.0); Monocytes % 6.3; Neutrophils % 63.3; Platelet Count 134 x1000/uL (130-400); RBC 4.76 m/cumm (4.50-6.00); RBC Distribution Width 14.7 % (11.8-14.1); White Blood Cell Count 5.99 k/cumm (4.4-10.8)
[2019-04-15] MEDS: Rocuronium 50 MG/5 ML SYR 70 MG IVP (08:31)
--- NOTE | 2019-04-15 08:35 | DI.VRAD_ITS ---
Addendum created by Darius Ramírez MD on 04/15/2019 9:32:01 AM EST Additional history indicates that the patient may have had a stroke as opposed to being mainly a trauma patient. He could have had an ischemic event that caused him to fall. The CT HEAD images for a high attenuation left MCA M1/M2 segments consistent with thrombosis. The degree of brain ischemia may be underestimated by this study if the event was hyperacute. THIS REPORT CONTAINS FINDINGS THAT MAY BE CRITICAL TO PATIENT CARE. The exam findings were verbally communicated by me via telephone conference to DANIAL Zee at 9:25 AM EST on 04/15/2019. The findings were acknowledged and understood. She indicated the patient is getting tPA and is being transferred to a higher care facility. Initial report created on 04/15/2019 8:34:38 AM EST PROCEDURE INFORMATION: Exam: CT Head Without Contrast Exam date and time: 04/15/2019 8:09 AM Age: 84 years old Clinical indication: Injury or trauma; Initial encounter; Blunt trauma (contusions or hematomas); Consciousness not specified; Injury date: Unknown; Injury details: Fall, altered. TECHNIQUE: Imaging protocol: Computed tomography of the head without contrast. Radiation optimization: All CT scans at this facility use at least one of these dose optimization techniques: automated exposure control; mA and/or kV adjustment per patient size (includes targeted exams where dose is matched to clinical indication); or iterative reconstruction. COMPARISON: CT HEAD 12/05/2014 FINDINGS: Brain: No acute brain parenchymal abnormality. Prior posterior left frontal lobe and anterior right temporal lobe infarcts with encephalomalacia. No intracranial hemorrhage. No extraaxial fluid collections. There is diffuse brain atrophy. There are white matter low attenuation changes in both cerebral hemispheres likely related to chronic small vessel disease. Ventricles: No hydrocephalus when allowing for the atrophy. Bones/joints: No calvarial fracture. Sinuses: There is mild multifocal mucoperiosteal thickening, but no fluid in the visualized paranasal sinuses. Mastoid air cells: The visualized mastoid air cells are aerated. Soft tissues: No acute soft tissue abnormality. IMPRESSION: No intracranial injury or calvarial fracture. PROCEDURE INFORMATION: Exam: CT Cervical Spine Without Contrast Exam date and time: 04/15/2019 8:09 AM Age: 84 years old Clinical indication: Injury or trauma; Initial encounter; Blunt trauma (contusions or hematomas); Consciousness not specified; Injury date: Unknown; Injury details: Fall, altered. TECHNIQUE: Imaging protocol: Computed tomography images of the cervical spine without contrast. Radiation optimization: All CT scans at this facility use at least one of these dose optimization techniques: automated exposure control; mA and/or kV adjustment per patient size (includes targeted exams where dose is matched to clinical indication); or iterative reconstruction. COMPARISON: CTA NECK 12/16/2018 7:00 AM FINDINGS: Vertebrae: The cervical vertebral bodies maintain overall height. There is a grade 1 retrolisthesis of C3 on C4. The facets align normally. Multilevel bilateral mild facet arthropathy. The craniocervical junction is maintained. The atlantodens interval is not widened. No acute fracture. Discs/Spinal canal/Neural foramina: Disc space narrowing degeneration most prominent at C6-C7, and posteriorly at C3-C4. No significant osseous spinal stenosis. Soft tissues: Unremarkable. Lungs: Minimal bilateral upper lobe emphysema. IMPRESSION: No acute osseous abnormality. Dictated and Authenticated by: Darius Ramírez MD. Ordering:JUANA Farrar MD
[2019-04-15 08:45] LABS: ALT 19 U/L (16-63); AST 23 U/L (15-37); Albumin 3.3 g/dL (3.4-5.0); Alkaline Phosphatase 78 U/L (46-116); Anion Gap 8.2 mmol/L (3-11); BUN 21 mg/dL (7-18); Bilirubin, Total 0.9 mg/dL (0.2-1.0); CO2 26.8 mmol/L (21.0-32.0); CREATININE 1.44 mg/dL (0.70-1.30); Calcium 8.4 mg/dL (8.5-10.1); Chloride 109 mmol/L (98-107); Estimated GFR 46.85 (mL/min/1.73m2); Glucose 136 mg/dL (74-106); Potassium 4.5 mmol/L (3.5-5.1); Sodium 144 mmol/L (136-145); Total Protein 6.6 g/dL (6.4-8.2); Troponin I < 0.05 ng/Ml (<0.06)
[2019-04-15] MEDS: fentaNYL 100 MCG/2 ML VIAL (08:45)
--- NOTE | 2019-04-15 08:46 | ED.GENADUL_ITS ---
Discharge Plan Disposition Patient Disposition: [facility] Condition: Critical Discharge Details Chief Complaint: CVA/TIA Clinical Impression: Acute CVA (cerebrovascular accident) Primary Care Provider: Aaliyah Ramirez ED Provider: Charan Burdick Home Meds and New Rx's Prescriptions: No Action methotrexate sodium 2.5 MG tablet 4 tab PO WEEKLY Qty: 60 RF: 3 levothyroxine 125 MCG tablet 100 mcg PO DAILY Qty: 90 RF: 4 nitroglycerin [Nitrostat] 0.4 MG tablet, sublingual 0.4 mg Sublingual PRN Qty: 25 RF: 4 aspirin [Aspir-Low] 81 MG tablet,delayed release (DR/EC) 81 mg PO DAILY RF: 0 Medical Decision Making 8:58 --84-year-old male with multiple medical rubs including history of atrial fibrillation, not on anticoagulation, coronary artery disease status post stent, 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 The patient seen immediately on arrival and transported by EMS to CT for stroke protocol. GCS E1 V1 M5. Patient has respiratory secretions and is not currently protecting his airway. Patient was intubated for airway protection without complication. CT of the head was interpreted by radiology: No intracranial injury or calvarial fracture. No acute brain parenchymal abnormality. Prior posterior left frontal lobe and anterior right temporal lobe infarct with encephalomalacia. No intracranial hemorrhage. Diffuse brain atrophy. There are white matter low- attenuation changes in both cerebral hemispheres likely related to chronic small vessel disease. CT of the cervical spine was interpreted by radiology: No acute osseous ab normality. Patient has a significantly elevated NIH stroke scale greater than 22. 9:05 -- Spoke with neuro ICU team at [facility]. Discussed ED presentation and course. They do recommend giving TPA after blood pressure control. They recommend controlling blood pressure less than 185/110 and then giving TPA despite relative exclusion criteria. [facility] is available at this time and I will initiate air transport. 9:25 -- BP improved with labetalol. Starting nicardipine drip to control pressure. I have titrated up fentanyl for pain control. Blood pressures currently 170/108 -administering alteplase. Portable chest x-ray was reviewed and interpreted by me: Endotracheal tube 4 cm above the [place]. Patient was reassessed multiple times and end-tidal CO2 and pulse ox adequate on ventilator. Nursing having difficulty with OG and NG, tube curling in oropharynx. I attempted to place in the right nare and also noted tube to curl in the oropharynx. Attempted oral placement and was unable to pass into esophagus. 9:30 --notified by the read, repeat interpretation of CT head notes thrombosed left MCA. 9:45 -- SBP decreased to 136. Will stop nicardipine. [facility] arrived and care to be transitioned to transport team. 10:00 -- [facility] requested propofol to switch sedative - they are now managing sedative. Medical Records Medical records reviewed: Yes I reviewed the patient's medical records. Lab Data Lab results reviewed: Yes I reviewed the patient's lab results. HPI General Mode of arrival: EMS . Date/Time Provider Initiated Documentation: 04/15/19 08:16 . Limitations to Documentation: altered mental status . Information obtained by: EMS . HPI Narrative: 84-year-old male with multiple medical problems including history of prior CVA, 2014 and 2019, left frontal with residual dysarthria, atrial fibrillation not on anticoagulation, coronary artery disease status post stenting, presents with altered mental status. Patient apparently was at home this morning and was acting normal. Patient apparently fell and did have loss of consciousness and has been unresponsive. Family called EMS who arrived 15 minutes after fall to find patient minimally responsive and not using right side. History and review of systems limited secondary to altered mental status. Related Data Home Medications Medication Instructions Recorded Confirmed levothyroxine 100 mcg PO DAILY #90 tab-cap 08/06/14 04/15/19 methotrexate sodium 4 tab PO WEEKLY #60 tab 08/06/14 04/15/19 nitroglycerin [Nitrostat] 0.4 mg SUBLINGUAL PRN #25 tab 08/06/14 04/15/19 aspirin [Aspir-Low] 81 mg PO DAILY 02/19/15 04/15/19 Allergies Allergy/AdvReac Type Severity Reaction Status Date / Time rivaroxaban [From Xarelto] Allergy Unverified 02/12/19 09:25 General Stated Complaint: CVA/TIA TIGRE: 1 Review of Systems No unobtainable due to mental status [facility] Medical History Anemia (Chronic) Atherosclerosis (Acute) Bilateral impacted cerumen (Acute) BPH (benign prostatic hyperplasia) (Chronic) COPD (chronic obstructive pulmonary disease) (Chronic) Dental caries (Acute) Fatigue (Acute) GERD (gastroesophageal reflux disease) (Chronic) HLD (hyperlipidemia) (Acute) Hypothyroidism (Chronic) Impaired fasting glucose (Acute) Memory deficit (Acute) Myocardial infarction (Chronic) PAF (paroxysmal atrial fibrillation) (Acute) Rheumatoid arthritis (Chronic) Thrombocytopenia (Chronic) Urinary frequency (Acute) Surgical History Extraction of cataract 02/25/15 DR. JOHN-RIGHT; 03/11/15 DR. JOHN-LEFT Stent placement Family History Mother Essential hypertension Personal history of malignant neoplasm STOMACH Father No problems noted. Brother No problems noted. Social History Smoking/Tobacco Use Status: Former Tobacco Use Alcohol Intake: never Drug use: Never Substance use type: does not use Do you feel safe at home: Yes Do you feel safe in your relationship?: Yes Exam Const Nutritional Appearance: thin Orientation: obtunded Limitations: altered mental status HENMT Head: normocephalic and atraumatic Mouth: moist mucous membranes Eyes Conjunctivae: normal conjunctivae Sclera: normal sclerae Pupils: PERRL Other: Patient seems to have a left gaze but intermittently does move eyes Neck Neck: trachea midline and supple Resp Auscultation: clear to auscultation bilaterally, no rales, no rhonchi and no wheezes Cardio Jugular venous pressure: no JVD Rate: regular rate and tachycardic Rhythm: abnormal rhythm irregularly irregular GI Palpation: soft, not firm, no guarding, no masses, not rigid and nontender Skin General skin exam: no rashes or lesions noted Neuro General: obtunded and other (Moving left arm, not moving right side) Cognition: abnormal cognition Speech: other (Aphasia severe) Motor: other (see below) Sensory Exam: other (No withdrawal from painful stimuli right upper or lower extremity) Other: No movement right side; patient withdraws from painful stimuli LLE, spontaneously moving LUE, Extrem General: no edema Course Vital Signs Vital signs: Vital Signs Respiratory Rate 19 04/15/19 08:14 Pulse 96 H 04/15/19 08:20 Pulse 120 H 04/15/19 08:30 Respiratory Rate 18 04/15/19 08:30 Blood Pressure 206/116 H 04/15/19 08:20 Blood Pressure Mean 132 04/15/19 08:20 Pulse Oximetry 99 04/15/19 08:30 Lab/Test Results Lab/Test Results: Laboratory Tests Range/Units 04/15/19 04/15/19 08:15 08:15 WBC (4.4-10.8) k/cumm 5.99 RBC (4.50-6.00) m/cumm 4.76 Hgb (13.5-17.5) g/dL 15.3 Hct (40.0-50.0) % 43.3 MCV (80-95) fL 91.0 MCH (27.0-33.0) pg 32.1 MCHC (32.0-36.0) g/dL 35.3 RDW (11.8-14.1) % 14.7 H Plt Count (130-400) x1000/uL 134 MPV (8.0-11.0) fL 9.9 Immature Gran % % 0.3 Neutrophils % 63.3 Lymphocytes % 27.4 Monocytes % 6.3 Eosinophils % 2.2 Basophils % 0.5 Absolute Neutrophils (1.2-6.7) k/cumm 3.79 Absolute Lymphocytes (1.2-3.4) k/cumm 1.64 Absolute Monocytes (0.11-0.7) k/cumm 0.38 Absolute Eosinophils (0.0-0.7) k/cumm 0.13 Absolute Basophils (0.0-0.2) k/cumm 0.03 Sodium (136-145) mmol/L 144 Potassium (3.5-5.1) mmol/L 4.5 Chloride (98-107) mmol/L 109 H Carbon Dioxide (21.0-32.0) mmol/L 26.8 Anion Gap (3-11) mmol/L 8.2 BUN (7-18) mg/dL 21 H Creatinine (0.70-1.30) mg/dL 1.44 H Estimated GFR/1.73 m2 (mL/min/1.73m2) 46.85 Glucose (74-106) mg/dL 136 H Calcium (8.5-10.1) mg/dL 8.4 L Total Bilirubin (0.2-1.0) mg/dL 0.9 AST (15-37) U/L 23 ALT (16-63) U/L 19 Alkaline Phosphatase (46-116) U/L 78 Troponin I (<0.06) ng/Ml < 0.05 Total Protein (6.4-8.2) g/dL 6.6 Albumin (3.4-5.0) g/dL 3.3 L Procedures Intubation Time out performed: Yes sedative: Etomidate Mg Given: 20 paralytic: Rocuronium Mg Given: 70 Laryngoscope: fiberoptic video scope Assist Device Used: fiberoptic device ET Tube Size: 7.5 Tube Secured Depth (cm): 23 Tube Secured Location: lips Tube Placement Confirmation: visualized tube passing through cords, equal breath sounds bilaterally, no breath sounds over epigastrum and confirmation by capnometry Patient Tolerated Procedure: well Intubation Complications: none Critical Care Time Critical Care Time Critical Care Time: Yes Total Critical Care Time: 85 Attestation: I spent greater than 85 minutes addressing this patient's immediate life threats
[2019-04-15] MEDS: MIDAZOLAM 50 MG in Normal Saline 90 ML IV (09:00)
[2019-04-15] MEDS: fentaNYL 1,000 MCG in Normal Saline 80 ML 6.1 MCG IV (09:08)
--- NOTE | 2019-04-15 09:15 | DI.RAD_ITS ---
EXAM: XR PORTABLE CHEST AP POST LINE INDICATION: post intubation. COMPARISON: XR PORTABLE CHEST AP from 12/16/2018 TECHNIQUE: 2D digital imaging was performed. FINDINGS: The heart size and pulmonary vasculature are within normal limits. There has been interval placement of an endotracheal tube. The tip is 4 centimeters above the [place]. The lungs are clear. No effus ion or pneumothorax is identified. IMPRESSION: Tip of the endotracheal tube is in good position 4 cm above the [place].
[2019-04-15] MEDS: Labetalol 100 MG/20 ML VIAL 20 MG IVP (09:20)
--- NOTE | 2019-04-15 09:32 | DI.VRAD_ITS ---
PROCEDURE INFORMATION: Exam: XR Chest, 1 View Exam date and time: 04/15/2019 9:13 AM Age: 84 years old Clinical indication: Post intubation TECHNIQUE: Imaging protocol: XR of the chest Views: 1 view. COMPARISON: CR XR PORTABLE CHEST AP 12/16/2018 7:23 AM FINDINGS: Tubes, catheters and devices: There has been placement of an endotracheal tube with the tip approximately 4 cm above the [place]. Lungs: No lung consolidation or pulmonary edema. Pleural space: No pleural effusion or pneumothorax. Heart/Mediastinum: The cardiac silhouette is not enlarged. The mediastinal contours are normal. Bones/joints: No acute osseous abnormality. IMPRESSION: Endotracheal tube tip 4 cm above the [place]. Dictated and Authenticated by: Darius Ramírez MD. Ordering:JOSE EDUARDO Munoz MD
[2019-04-15] MEDS: niCARdipine 25 MG in Normal Saline 240 ML 50 MG IV (09:36)
[2019-04-15] MEDS: PROPOFOL 1,000 MG/100 ML BTL 1 MG (09:52)
== END 2019-04-15 10:06 | disposition short-term general hospital (02) ==
PROVIDERS: Emergency Provider Student in an Organized Health Care Education/Training Program; PCP Nurse Practitioner
DX: I63.312 Cerebral infarction due to thrombosis of left middle cerebral artery (principal); R29.722 NIHSS score 22; I48.91 Unspecified atrial fibrillation; J44.9 Chronic obstructive pulmonary disease, unspecified; Z87.891 Personal history of nicotine dependence; R40.2431 Glasgow coma scale score 3-8, in the field [EMT or ambulance]
CPT/HCPCS: 31500; 36415; 36416; 51702; 71045; 80053; 82962; 93005; 96365; 96368; 96375; 99291; 99292; 70450; 72125; 84484; 85025; 93010; J2997; J3010; J3490; L0172